=== PATIENT | male | born 1950 | race Two or more races ===

== ENCOUNTER 2017-12-11 19:39 | Emergency (ER) | payer MEDICARE, MEDICAID ==
[~2017-12-11] VITALS: Ht 162.6 cm; Wt 88.5 kg
[2017-12-11 20:12] VITALS: BP 161/92
== END 2017-12-11 20:32 | disposition home or self-care (01) ==
LOC: ER 19:40
DX: M25.522 Pain in left elbow (principal); I10 Essential (primary) hypertension; E11.9 Type 2 diabetes mellitus without complications; V49.49XA Driver injured in collision with other motor vehicles in traffic accident, initial encounter; Y93.89 Activity, other specified; Y92.410 Unspecified street and highway as the place of occurrence of the external cause; Y99.8 Other external cause status
CPT/HCPCS: 99283; A4606; Z7610